=== PATIENT | male | born 1930 | race Caucasian/White ===

== ENCOUNTER → 2016-10-18 | Outpatient (CLI) | payer MEDICARE ==
[2016-10-18 12:35] LABS: ASPARTATE AMINO TRANSFERASE 33 U/L (15-37); BLOOD UREA NITROGEN 13 mg/dL (7-18)
== END | disposition home or self-care (01) ==
LOC: CFH 11:18
PROVIDERS: ATTEND Physician Assistant
DX: J18.9 Pneumonia, unspecified organism (principal); E78.1 Pure hyperglyceridemia; I25.10 Atherosclerotic heart disease of native coronary artery without angina pectoris; J30.9 Allergic rhinitis, unspecified; I48.91 Unspecified atrial fibrillation; C61 Malignant neoplasm of prostate; Z12.11 Encounter for screening for malignant neoplasm of colon; G58.9 Mononeuropathy, unspecified; R73.9 Hyperglycemia, unspecified; H91.8X3 Other specified hearing loss, bilateral; R26.9 Unspecified abnormalities of gait and mobility; I73.9 Peripheral vascular disease, unspecified; F32.9 Major depressive disorder, single episode, unspecified
CPT/HCPCS: 36415; 71020; 80053; 83880; 85025

== ENCOUNTER → 2017-01-11 | Outpatient (CLI) | payer MEDICARE | END | disposition home or self-care (01) | LOC: LAB 10:42 | PROVIDERS: ATTEND Physician Assistant | DX: R91.8 Other nonspecific abnormal finding of lung field (principal) | CPT/HCPCS: 36415; 86480 ==

== ENCOUNTER → 2018-01-09 | Outpatient (CLI) | payer MEDICARE | END | disposition home or self-care (01) | LOC: CFH 10:15 | PROVIDERS: ATTEND Physician Assistant | DX: M79.89 Other specified soft tissue disorders (principal); M25.572 Pain in left ankle and joints of left foot; E78.1 Pure hyperglyceridemia; C61 Malignant neoplasm of prostate; J30.9 Allergic rhinitis, unspecified; I48.91 Unspecified atrial fibrillation ==

== ENCOUNTER → 2018-01-10 | Outpatient (CLI) | payer MEDICARE | END | disposition home or self-care (01) | LOC: CFH 13:53 | PROVIDERS: ATTEND Physician Assistant | DX: M19.072 Primary osteoarthritis, left ankle and foot (principal); E78.1 Pure hyperglyceridemia; I48.91 Unspecified atrial fibrillation; C61 Malignant neoplasm of prostate; I73.9 Peripheral vascular disease, unspecified ==